=== PATIENT | male | born 1990 | race Caucasian/White ===

== ENCOUNTER 2020-01-11 09:04 | Emergency (ER) | payer OTHER ==
[~2020-01-11] VITALS: Ht 180.3 cm; Wt 113.4 kg
[~2020-01-11 09:04] MED LIST: CYCL10 PO; Excedrin Extra1 EACH PO; IBUP800 PO; MOMENI; RANI150 PO
== END 2020-01-11 11:03 | disposition home or self-care (01) ==
LOC: ER 09:04
DX: S51.812A Laceration without foreign body of left forearm, initial encounter (principal); F17.210 Nicotine dependence, cigarettes, uncomplicated; Z88.5 Allergy status to narcotic agent; W45.8XXA Other foreign body or object entering through skin, initial encounter
CPT/HCPCS: 12002; 99282-25

== ENCOUNTER 2020-01-21 15:28 | Emergency (ER) | payer OTHER ==
[~2020-01-21] VITALS: Ht 180.3 cm; Wt 130.2 kg
== END 2020-01-21 15:44 | disposition home or self-care (01) ==
LOC: ER 15:28
DX: S51.812D Laceration without foreign body of left forearm, subsequent encounter (principal); F17.210 Nicotine dependence, cigarettes, uncomplicated; Z88.5 Allergy status to narcotic agent